=== PATIENT | male | born 1955 | race Caucasian/White ===

== ENCOUNTER 2019-01-09 09:55 | Outpatient (CLI) | payer OTHER ==
[~2019-01-09 09:55] MED LIST: Lidocaine 2% 20 ml MDV ONE; Sodium Chloride 0.9% 15 ML NEB ONE
--- NOTE | 2019-01-09 17:46 | HP ---
HISTORY OF PRESENT ILLNESS: Mr. Jose Manuel Brennan is a very pleasant 63-year-old gentleman, who presents [facility] for evaluation of a wound of the left posterior lower leg. The patient states that he noted the presence of a "knot" or "lump" over his left posterior lower leg approximately 3 to 4 years ago. He states that 2 months after noting the presence of the lump or not, he experienced swelling of his left lower extremity. At this time, he states that he noted the presence of an open wound over his left posterior lower leg. The patient states that he has treated the wound of his left posterior lower leg with Neosporin followed by a Band-Aid. The patient was referred to the [facility]ound [facility] by Dr. Bolanos on 12/17/2018. PAST MEDICAL HISTORY: 1. Hypertension. 2. Atrial fibrillation. 3. Congestive heart failure. 4. Coronary artery disease. 5. Gout. 6. Obstructive sleep apnea. PAST SURGICAL HISTORY: Negative. MEDICATIONS: 1. Allopurinol. 2. Klor-Con. 3. Coreg. 4. Eliquis. 5. Amlodipine. 6. 5-MTHF. 7. Lasix. 8. Pantoprazole. 9. Clopidogrel. 10. Lisinopril. 11. Vytorin. 12. Multivitamin. ALLERGIES: NO KNOWN DIAGNOSED ALLERGIES. SOCIAL HISTORY: Social history is negative for tobacco use. The patient admits to the consumption of 8 to 10 beers per day for 44 years. FAMILY HISTORY: Family history is negative for diabetes mellitus. Family history is significant for coronary artery disease. The patient states that his mother, maternal grandfather, and maternal grandmother were all diagnosed with coronary artery disease. PHYSICAL EXAMINATION: VITAL SIGNS: Temperature 98.1, pulse 60, respirations 20, and blood pressure 107/58. GENERAL: A 63-year-old gentleman, sitting on table in examination room, in no acute distress. HEENT: Normocephalic and atraumatic. NECK: No nuchal rigidity. CHEST: Clear to auscultation. CV: Regular rate and rhythm. ABDOMEN: Soft. EXTREMITIES: A lesion of the left posterior lower leg is present, which measures approximately 2.5 x 2.5 cm. The lesion is papillary in its appearance after prepping of the periwound with alcohol and Betadine, 2% injectable lidocaine was utilized to achieve local anesthesia. Three punch biopsy specimens at the periphery of the wound were obtained with each specimen containing a portion of the wound as well as the periwound. The three specimens obtained by punch biopsy were sent to Pathology in formalin in order to rule out fungus and/or malignancy. The wound was dressed with Surgicel after packing each punch biopsy site with Surgicel. A compression dressing was then applied to the lesion of the left posterior lower leg. NEUROLOGIC: Grossly nonfocal. ASSESSMENT AND PLAN: 1. Left posterior lower leg lesion as described above. Three punch biopsy specimens were obtained today and sent to Pathology in order to look for findings of malignancy and/or fungus. I will see Mr. Brennan again in 2 weeks. At this time, the patient will be given the results of the biopsy of the wound obtained today. The patient is to keep the lesion clean and dry and covered until his followup visit in 2 weeks. The patient understands and is in agreement with the preceding treatment plan. 2. Hypertension. 3. Atrial fibrillation. 4. Congestive heart failure. 5. Coronary artery disease. 6. Gout. 7. Obstructive sleep apnea. Job ID: [id number]
== END 2019-01-09 09:56 | disposition home or self-care (01) ==
LOC: WCC 09:55
PROVIDERS: ATTEND Family Medicine
DX: S81.802D Unspecified open wound, left lower leg, subsequent encounter (principal); I11.0 Hypertensive heart disease with heart failure; I50.9 Heart failure, unspecified; I25.10 Atherosclerotic heart disease of native coronary artery without angina pectoris; G47.33 Obstructive sleep apnea (adult) (pediatric); M10.9 Gout, unspecified; I48.91 Unspecified atrial fibrillation
CPT/HCPCS: 88305; A4218; J2001

== ENCOUNTER 2019-01-13 11:11 | Outpatient (CLI) | payer OTHER ==
--- NOTE | 2019-01-13 11:32 | PRG ---
DATE OF SERVICE: 01/13/2019 HISTORY: Mr. Jose Manuel Brennan is a very pleasant 63-year-old, who presents to the [facility] prior to his next scheduled appointment for left lower leg swelling. The patient underwent punch biopsy of the lesion of the left posterior lower leg on 01/09/2019. The patient reports persistent bleeding at the biopsy site in addition to swelling of the left lower leg. He also reports pain and erythema of the left lower leg. PHYSICAL EXAMINATION: VITAL SIGNS: Temperature 97.6, pulse 59, respirations 19, blood pressure 88/48. EXTREMITIES: Bleeding from the biopsy site is noted which resolve with pressure over the biopsy site and elevation of the left lower extremity. The left lower leg is markedly erythematous and edematous on exam today. ASSESSMENT AND PLAN: 1. Left lower leg edema following punch biopsy of left posterior lower leg lesion on 01/09/2019. In addition, the left lower leg is erythematous. The patient also reports significant pain of his left lower leg. Venous duplex will be obtained today. 2. Hypertension. 3. Atrial fibrillation. 4. Congestive heart failure. 5. Coronary artery disease. 6. Gout. 7. Obstructive sleep apnea. Job ID: [id number]
--- NOTE | 2019-01-13 12:01 | ULT ---
US Venous Doppler Lt Unilat History: Lower extremity edema redness and swelling and pain Comparison: None. Findings: Real-time grayscale, color, and spectral analysis of the left lower extremity venous system was performed. The common femoral, femoral, proximal portions greater saphenous and deep femoral veins as well as the popliteal posterior tibial veins were interrogated. Normal flow, augmentation, and compression. Impression: No deep venous thrombosis.
[2019-01-13] MEDS ORDERED: Sodium Chloride 0.9% 15 ML NEB ONE (15:00)
== END 2019-01-13 11:12 | disposition home or self-care (01) ==
LOC: WCC 11:11 → ULT 11:12
PROVIDERS: ATTEND Family Medicine
DX: M79.605 Pain in left leg (principal); M79.89 Other specified soft tissue disorders
CPT/HCPCS: A4218

== ENCOUNTER 2019-03-03 10:53 | Day surgery (SDC) | payer OTHER ==
[2019-02-28 15:00] VITALS: BMI 36.3
[~2019-03-03 10:53] MED LIST changes: +EPINEPHrine 1 MG/10 ML Abboject SYRINGE ONE; +Glycopyrrolate 0.2 MG/ML 5 ML SYRINGE ONE; +Lidocaine 1% PF 5 ML VIAL ONE; -Lidocaine 2% 20 ml MDV ONE; +Ondansetron PF 4 MG/2 ML Vial ONE; +PROPOFOL 200 MG/20 ML VIAL ONE; +Rocuronium Bromide 10 MG/ML (10ML VIAL) ONE; -Sodium Chloride 0.9% 15 ML NEB ONE; +Succinylcholine Chloride 20 MG/ML 10 ml SYRINGE FS ONE
[2019-03-03] MEDS ORDERED: Scopolamine 1.5 mg/72 hour Patch ONE (12:34)
[2019-03-03] MEDS ORDERED: EPINEPHrine 1 MG/ML AMP ONE ×2 (12:40→14:37)
[2019-03-03] MEDS ORDERED: Bupivacaine 0.25% HCL 30 ML VIAL ONE ×2 (12:40→14:36)
[2019-03-03] MEDS ORDERED: Fentanyl 250 MCG/5 ML VIAL ONE (15:48)
[2019-03-03] MEDS ORDERED: HYDROcodone/Acetaminophen 5/325 mg Tablet ONE (16:18)
--- NOTE | 2019-03-04 13:02 | OP ---
DATE OF PROCEDURE: 03/03/2019 PREOPERATIVE DIAGNOSES: 1. 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 2. Split-thickness skin graft, left leg (40 cm2) (31110). PROCEDURE: Following induction of adequate anesthesia, and then placement of splint, left leg, [id number]. DESCRIPTION OF PROCEDURE: Following induction of adequate anesthesia, the patient was prepped and draped in the usual sterile fashion in lateral position. The patient's tumor, squamous cell carcinomas were widely excised. In the process of excision of this tumor, it appeared to invade or be adhered to the underlying part of the gastroc tendon. This was excised leaving a several centimeter defect. The underlying soleus was intact. Frozen section analysis came back as margins clear. One specific area of deep tissue concern was separately analyzed and noted to be nonmalignant. A skin graft reconstruction was chosen. A skin graft from the ipsilateral thigh was harvested at 02/1000 of an inch and meshed at 1-1/2 to 1. It was then secured to the wound with tony. The vacuum assisted dressing was placed. Underneath the skin graft, acellular matrix was placed as well. This was done to enhance the survival. The powder was made into a paste with some saline and then spread over the base of the wound prior to placing the graft. A sheet of ACell was also placed over the donor site to enhance healing due to the patient's severe peripheral vascular disease. The patient tolerated the procedure well. Job ID: [id number]
== END 2019-03-03 18:35 | disposition home or self-care (01) ==
LOC: SDC 10:53
PROVIDERS: ATTEND Plastic Surgery
PROC: 0KBT0ZZ Excision of Left Lower Leg Muscle, Open Approach (ICD-10-PCS; principal; 2019-03-03)
PROC: 0HRLX74 Replacement of Left Lower Leg Skin with Autologous Tissue Substitute, Partial Thickness, External Approach (ICD-10-PCS; principal; 2019-03-03)
DX: C44.729 Squamous cell carcinoma of skin of left lower limb, including hip (principal); I10 Essential (primary) hypertension; I48.91 Unspecified atrial fibrillation; Z79.01 Long term (current) use of anticoagulants; Z79.899 Other long term (current) drug therapy
CPT/HCPCS: 88305; 88331; 88332; 93005; 93010; J0171; J0690; J2001; J2405; J2704; J3010; Q4118-KX-JC; Q4166-KX-JC; S0020

== ENCOUNTER 2019-04-29 16:25 | Outpatient (CLI) | payer BC ==
--- NOTE | 2019-04-29 17:47 | RAD ---
EXAM: XR Bone Survey Adult STANDARD PROVIDED CLINICAL HISTORY: Staging of multiple myeloma. COMPARISON: None FINDINGS: AP and lateral views spine, AP view of the upper and lower extremities, and lateral view of the skull are provided. Scattered degenerative changes are seen throughout the spine with evidence of bilateral acromioclavic ular osteoarthritis. There are mild degenerative changes seen at the left ankle. There is suggestion of increased density involving the right lunate bone with subchondral cystic chavarria ges. This could be related to prior injury and subchondral cystic changes. Scaphoid bone is also mildly irregular. There is narrowing of the radiocarpal joint right wrist. Findings may be attributab le to prior injury with findings suggesting post traumatic osteoarthritis. Depending on clinical concern, dedicated views right wrist can be performed for further evaluation. No definite suspicious lytic or sclerotic osseous lesions are appreciated. Radiopaque density overlies the distal bilateral lower extremities suggesting overlying bandaging mat erial. Vascular calcifications overlie the neck bilaterally with vascular calcifications seen in the thoraci c and abdominal aorta. IMPRESSION: 1. No obvious suspicious lytic or sclerotic osseous lesions are seen. 2. Scattered degenerative changes as described above including what is thought to be more remote post traumatic changes involving the right wrist. However, depending on clinical concern, dedicated views of right wrist can be performed for further evaluation if there is focal pain involving the rig ht wrist.
== END 2019-04-29 16:26 | disposition home or self-care (01) ==
LOC: BICRAD 16:25
PROVIDERS: ATTEND Internal Medicine Hematology & Oncology
DX: C90.00 Multiple myeloma not having achieved remission (principal); M47.819 Spondylosis without myelopathy or radiculopathy, site unspecified; M19.072 Primary osteoarthritis, left ankle and foot; M19.011 Primary osteoarthritis, right shoulder; M19.012 Primary osteoarthritis, left shoulder
CPT/HCPCS: 36415; 77075; 80053; 82232; 83883; 84165; 86334; 86704; 86705; 86706; 86707; 86803; 87340; 87350